=== PATIENT | male | born 1995 | race Caucasian/White ===

== ENCOUNTER 2019-07-31 10:10 | Outpatient (CLI) | payer OTHER, MEDICAID, SELFPAY ==
[2019-07-31 10:50] LABS: Hematocrit 44.2 % (42.0-52.0); Hemoglobin 15.2 g/dL (14.0-18.0); Mean Corpuscular HGB Conc 34.4 g/dl (32-36); Mean Corpuscular Volume 95.9 fl (80-100); Mean Platelet Volume 10.3 fl (7.4-10.4); Platelet Count Result 162 k/mm3 (150-375); Red Blood Count 4.61 M/mm3 (4.6-6.20); Red Cell Distribution Width 11.6 % (11.5-14.5); White Blood Count 5.8 K/mm3 (4.5-10.0)
[2019-07-31 11:02] LABS: Alanine Aminotransferase 40 U/L (4-50); Albumin Level 4.5 g/dL (3.5-5.1); Alkaline Phosphatase 67 U/L (38-126); Aspartate Amino Transferase 30 U/L (17-59); Bilirubin,Total 0.5 mg/dL (0.2-1.3); Blood Urea Nitrogen 10 mg/dL (9-20); Calcium 9.1 mg/dL (8.4-10.2); Carbon Dioxide 31 mmol/L (22-30); Chloride 101 mmol/L (98-107); Estimated Glomerular Filt Rate > 60; Glucose 73 mg/dL (75-110); Potassium 3.8 mmol/L (3.4-5.0); Sodium 141 mmol/L (137-145)
== END 2019-07-31 10:11 | disposition home or self-care (01) ==
PROVIDERS: PCP Internal Medicine; Visit Provider Internal Medicine
DX: G40.909 Epilepsy, unspecified, not intractable, without status epilepticus (principal)
CPT/HCPCS: 36415; 80053; 84443; 85027

== ENCOUNTER 2020-08-01 08:22 | Outpatient (CLI) | payer OTHER, MEDICAID, SELFPAY ==
[2020-08-01 08:47] LABS: Basophils Percent Auto 0.3 % (0.2-1.2); Eosinophils Absolute Auto 0.3 K/mm3 (0-0.3); Eosinophils Percent Auto 3.7 % (0-4.4); Immature Granulocyte Absolute 0.01 K/mm3 (0.00-0.031); Immature Granulocyte Percent A 0.1 % (0-0.5); Lymphocytes Absolute Auto 3.24 K/mm3 (0.9-3.2); Lymphocytes Percent Auto 47.9 % (18.3-44.2); Mean Corpuscular Hemoglobin 33.1 pg (26-34); Mean Corpuscular Volume 97.3 fl (80-100); Mean Platelet Volume 9.5 fl (7.4-10.4); Monocytes Absolute Auto 0.3 K/mm3 (0.1-0.6); Monocytes Percent Auto 4.9 % (2.6-8.5); Neutrophils Absolute Auto 2.9 K/mm3 (1.3-6.7); Neutrophils Percent Auto 43.1 % (45.5-73.1); Platelet Count Result 171 k/mm3 (150-375); Red Blood Count 5.14 M/mm3 (4.6-6.20); Red Cell Distribution Width 11.4 % (11.5-14.5); White Blood Count 6.8 K/mm3 (4.5-10.0)
[2020-08-01 09:01] LABS: Alanine Aminotransferase 36 U/L (4-50); Albumin Level 4.8 g/dL (3.5-5.1); Alkaline Phosphatase 69 U/L (38-126); Anion Gap 8 mmol/L (8-16); Aspartate Amino Transferase 29 U/L (17-59); Bilirubin,Total 0.5 mg/dL (0.2-1.3); Blood Urea Nitrogen 16 mg/dL (9-20); Calcium 9.8 mg/dL (8.4-10.2); Carbon Dioxide 30 mmol/L (22-30); Chloride 103 mmol/L (98-107); Estimated Glomerular Filt Rate > 60; Glucose 79 mg/dL (75-110); Sodium 141 mmol/L (137-145)
== END 2020-08-01 08:23 | disposition home or self-care (01) ==
LOC: ANHLAB 08:26
PROVIDERS: PCP Internal Medicine; Visit Provider Internal Medicine
DX: G40.909 Epilepsy, unspecified, not intractable, without status epilepticus (principal); Z00.00 Encounter for general adult medical examination without abnormal findings
CPT/HCPCS: 36415; 80053; 84443; 85025

== ENCOUNTER 2021-07-27 16:06 | Outpatient (CLI) | payer OTHER, MEDICAID, SELFPAY ==
[2021-07-27 16:30] LABS: Basophils Percent Auto 0.4 % (0.2-1.2); Eosinophils Absolute Auto 0.3 K/mm3 (0-0.3); Eosinophils Percent Auto 3.6 % (0-4.4); Hemoglobin 16.7 g/dL (14.0-18.0); Immature Granulocyte Absolute 0.01 K/mm3 (0.00-0.031); Immature Granulocyte Percent A 0.1 % (0-0.5); Lymphocytes Percent Auto 44.9 % (18.3-44.2); Mean Corpuscular HGB Conc 33.4 g/dl (32-36); Mean Corpuscular Hemoglobin 32.6 pg (26-34); Mean Corpuscular Volume 97.7 fl (80-100); Mean Platelet Volume 9.5 fl (7.4-10.4); Monocytes Absolute Auto 0.4 K/mm3 (0.1-0.6); Neutrophils Absolute Auto 3.6 K/mm3 (1.3-6.7); Platelet Count Result 192 k/mm3 (150-375); Red Blood Count 5.12 M/mm3 (4.6-6.20); Red Cell Distribution Width 11.5 % (11.5-14.5); White Blood Count 7.8 K/mm3 (4.5-10.0)
[2021-07-27 16:39] LABS: Alanine Aminotransferase 31 U/L (6-50); Albumin Level 5.3 g/dL (3.5-5.1); Alkaline Phosphatase 75 U/L (38-126); Anion Gap 9 mmol/L (8-16); Aspartate Amino Transferase 28 U/L (17-59); Bilirubin,Total 0.5 mg/dL (0.2-1.3); Blood Urea Nitrogen 16 mg/dL (9-20); Calcium 9.5 mg/dL (8.4-10.2); Carbon Dioxide 33 mmol/L (22-30); Chloride 98 mmol/L (98-107); Estimated Glomerular Filt Rate > 60; Glucose 89 mg/dL (65-110); Potassium 3.6 mmol/L (3.4-5.0); Sodium 140 mmol/L (137-145)
== END 2021-07-27 16:07 | disposition home or self-care (01) ==
LOC: ANHLAB 16:10
PROVIDERS: PCP Family Medicine; Visit Provider Family Medicine
DX: G40.909 Epilepsy, unspecified, not intractable, without status epilepticus (principal)
CPT/HCPCS: 36415; 80053; 84443; 85025

== ENCOUNTER 2023-11-09 08:01 | Outpatient (CLI) | payer OTHER, MEDICAID, SELFPAY ==
--- NOTE | ~2023-11-09 | XR_ITS ---
EXAMINATION: XR UGI w esoph water soluble, XR sm bowel follow through WS DATE: 11/09/2023 10:29 INDICATION: TECHNIQUE: The patient drank water-soluble contrast. Conventional supine abdomen radiographs and fluo roscopic spot radiographs of the hypopharynx, esophagus, stomach, and proximal small bowel were obtai sydney. Additional overhead radiographs were obtained during the transit through the small bowel. Fluoro scopy exposure time was 1.3 minutes. A total of 721 fluoroscopic images and 3 overhead radiographs we re obtained. Total DAP was 11.293 Gycm^2 COMPARISON: None. FINDINGS: The pharynx appears normal without evidence of mass lesion or mucosal irregularity. There was flash l aryngeal penetration which cleared immediately without aspiration. The esophagus is normal without ma ss or stricture. Esophageal motility is normal. There is no hiatal hernia. The stomach and proximal s mall bowel are normal. There is elevation of the diaphragm due to marked gaseous distention of the co malissa. Transit time from the stomach to proximal colon was approximately 30 minutes. There is normal caliber and mucosal fold pattern throughout the small bowel. IMPRESSION: 1. Flash laryngeal penetration without aspiration. Otherwise unremarkable water-soluble contrast esop hagram and upper GI study. 2. Prominent gaseous distention of the colon. Otherwise normal small bowel follow-through with 30 min ramona transit time to the colon. Reviewed, dictated and finalized at location A. IMPRESSION: 1. Flash laryngeal penetration without aspiration. Otherwise unremarkable water -soluble contrast esophagram and upper GI study. 2. Prominent gaseous distention of the colon. Otherwise normal small bowel foll ow-through with 30 minute transit time to the colon.
== END 2023-11-09 08:02 | disposition home or self-care (01) ==
LOC: ANHIMG 08:01
PROVIDERS: PCP Family Medicine; Visit Provider Family Medicine
DX: R11.15 Cyclical vomiting syndrome unrelated to migraine (principal); K63.89 Other specified diseases of intestine
CPT/HCPCS: 74240; 74248; 74250

== ENCOUNTER 2024-05-06 11:27 | Outpatient (CLI) | payer OTHER, SELFPAY ==
--- NOTE | ~2024-05-06 | XR_ITS ---
Clinical Indication: Chronic cough PA and lateral views of the chest: Comparison: 08/24/2016 Findings: There is central pulmonary venous congestive change or vascular crowding with probable mini mal bibasilar pulmonary edema. No pleural effusion or pneumothorax. Cardiomediastinal silhouette is within normal limits. Markedly air distended bowel loops are present of the diaphragm, similar to fausto or exam. Osseous structures intact. Impression: Low lung volumes with probable vascular crowding or central congestive change and mild bibasilar pulm onary edema versus atelectasis. Air distended loops of bowel under the diaphragms are similar to prior exam. Reviewed, dictated and finalized at location . S EXAMINER Impression: Low lung volumes with probable vascular crowding or central congestive change a nd mild bibasilar pulmonary edema versus atelectasis. Air distended loops of bowel under the diaphragms are similar to prior exam.
== END 2024-05-06 11:28 | disposition home or self-care (01) ==
LOC: MICIMG 11:31
PROVIDERS: PCP Family Medicine; Visit Provider Physician Assistant Medical
DX: R91.8 Other nonspecific abnormal finding of lung field (principal)
CPT/HCPCS: 71046

== ENCOUNTER 2024-05-23 07:54 | Outpatient (CLI) | payer OTHER, MEDICAID, SELFPAY ==
--- NOTE | 2024-05-23 07:57 | ECHO_ITS ---
Patient Info Name: Dewayne Berkowitz Age: 28 years : 1995 Gender: Male Ht: 63 in Wt: 147 lbs BSA: 1.74 m2 HR: 67 bpm BP: 131 / 103 mmHg Technical Quality: Good Exam Date: 05/23/2024 8:09 AM Exam Location: Echo Lab Patient Status: Outpatient Admit Date: 05/23/2024 Staff Ordering Physician: Natali Neves PAC Automation Technologist: Rica Tavares RDCS Attending Provider: Natali Neves Referring Physician: Pura HERNANDEZ; Exam Type: CA echo doppler color flow Study Info Indications - Chronic pulmonary edema Complete two-dimensional, color flow and Doppler transthoracic echocardiogram is performed. Strain analysis performed. Summary 1. Complete two-dimensional, color flow and Doppler transthoracic echocardiogram is performed. 2. Left ventricular chamber dimension is moderately enlarged. 3. Left ventricular systolic function is mildly globally reduced, estimated at 45-50%. 4. The left ventricular diastolic function is normal. 5. E/e' 5 is not elevated. 6. Global longitudinal strain is normal at -19.1%. 7. Right ventricular chamber dimension is moderately enlarged. 8. Right ventricular systolic function is mildly reduced and with abnormal TAPSE 1.5 cm. 9. Left atrial chamber dimension is moderately enlarged. 10. Right atrial chamber dimension is mildly enlarged. 11. There is trace mitral valve regurgitation. 12. There is trace tricuspid valve regurgitation. 13. No pulmonary hypertension, estimated pulmonary arterial systolic pressure is 20 mmHg. 14. There is trace pulmonic regurgitation. Left Ventricle E/e' 5 is not elevated. Global longitudinal strain is normal at -19.1%. Left ventricular systolic function is mildly globally reduced, estimated at 45-50%. Left ventricular chamber dimension is moderately enlarged. The left ventricular diastolic function is normal. Right Ventricle Right ventricular systolic function is mildly reduced and with abnormal TAPSE 1.5 cm. Right ventricular chamber dimension is moderately enlarged. Left Atria Left atrial chamber dimension is moderately enlarged. Right Atria Right atrial chamber dimension is mildly enlarged. Aortic Valve The aortic valve is trileaflet. There is no aortic valve stenosis. There is no aortic valve regurgitation. Pulmonic Valve There is trace pulmonic regurgitation. Mitral Valve There is no mitral valve stenosis. There is trace mitral valve regurgitation. Tricuspid Valve There is trace tricuspid valve regurgitation. No pulmonary hypertension, estimated pulmonary arterial systolic pressure is 20 mmHg. Pericardium/Pleural There is no pericardial effusion. Inferior Vena Cava Normal inferior vena cava with >50% collapse upon inspiration consistent with normal right atrial pressure, 5 mmHg. Aorta The aortic root size at the sinus of Valsalva is normal. Left Ventricular Outflow Tract Name Value Normal LVOT 2D LVOT Diameter 2.0 cm LVOT Doppler LVOT Peak Gradient 3 mmHg LVOT Mean Gradient 2 mmHg LVOT VTI 18 cm LVOT VTI/AV VTI Ratio 0.7 LVOT Stroke Volume 56 ml LVOT CO 12.4 l/min LVOT CI 7.1 l/min/m2 Pulmonic Valve Name Value Normal PV Doppler PV Peak Gradient 4 mmHg Mitral Valve Name Value Normal MV Doppler MV Decel Rincon 444 cm/s2 MV PHT 57 ms MV Area (PHT) 3.9 cm2 4.0-5.0 MV Diastolic Function MV E Peak Velocity 87 cm/s MV A Peak Velocity 33 cm/s MV E/A 2.6 MV Decel Time 196 ms MV Annular TDI MV E/e' (Septal) 8.4 <=8.0 MV E/e' (Lateral) 4.6 <=8.0 MV E/e' (Average) 6.5 Tricuspid Valve Name Value Normal TV Regurgitation Doppler TR Peak Velocity 196 cm/s TR Peak Gradient 15 mmHg Estimated PAP/RSVP RA Pressure 5 mmHg <=5 PA Systolic Pressure 20 mmHg <36 RV Systolic Pressure 20 mmHg <36 Aorta Name Value Normal Ascending Aorta Ao Root Diameter (MM) 2.5 cm Ao Root Diam Index (MM) 1.4 cm/m2 Aortic Valve Name Value Normal AV Doppler AV Peak Velocity 109 cm/s AV Peak Gradient 5 mmHg AV Mean Gradient 3 mmHg AV VTI 26 cm AV Area (Cont Eq VTI) 2.2 cm2 >=3.0 AV Area (Cont Eq Gilberto) 2.6 cm2 AV Regurgitation 2D LVOT Area 3.1 cm2 Ventricles Name Value Normal LV Dimensions 2D/MM IVS Diastolic Thickness (2D) 0.7 cm 0.6-1.0 LVID Diastole (2D) 4.6 cm 4.2-5.8 LVIW Diastolic Thickness (2D) 0.7 cm 0.6-1.0 LVID Systole (2D) 3.2 cm 2.5-4.0 LVOT Diameter 2.0 cm LV Mass (2D Cubed) 104.76 g 88.00-224.00 LV Mass Index (2D Cubed) 60 g/m2 49-115 Relative Wall Thickness (2D) 0.31 LV Fractional Shortening/Ejection Fraction 2D/MM LV Fractional Shortening (2D) 30 % 25-43 LV EF (2D Teicholz) 57 % 52-72 LV Diastolic Volume (4C MOD) 92 ml LV EF (4C MOD) 42 % LV Diastolic Volume (2C MOD) 92 ml LV EF (2C MOD) 49 % LV Diastolic Volume (BP MOD) 94 ml 62-150 LV Diastolic Volume Index (BP MOD) 54 ml/m2 34-74 LV Systolic Volume (BP MOD) 51 ml 21-61 LV Systolic Volume Index (BP MOD) 30 ml/m2 11-31 LV EF (BP MOD) 45 % 52-72 LV Diastolic Length (4C) 7.6 cm LV Systolic Length (4C) 5.8 cm LV Stroke Volume (4C MOD) 39 ml RV Dimensions 2D/MM RVID Diastole (2D) 3.8 cm 2.5-3.5 Atria Name Value Normal LA Dimensions LA Dimension (MM) 3.5 cm 3.0-4.1 LA Volume (4C A-L) 43 ml LA Volume (BP A-L) 46 ml RA Dimensions RA Area (4C) 12.8 cm2 <=18.0 EchoPAC Name Value Normal AutoEF LVCO_BiP_Q (Vusq5OBR) 2.7 l/min LVEF_BiP_Q (Uhtg8ACT) 52 % LVSV_BiP_Q (Szdm6QED) 45 ml LVVED_BiP_Q (Tdqg4TBR) 87 ml LVVES_BiP_Q (Pnkr6FHS) 42 ml HR_4Ch_Q (Tncp6KQT) 64 bpm LVCO_4Ch_Q (Synz8ZAA) 3.3 l/min LVEF_4Ch_Q (Dhqo5YIA) 50 % LVLd_4Ch_Q (Gfxm7DPP) 6.5 cm LVLs_4Ch_Q (Anvb6NXS) 5.3 cm LVSV_4Ch_Q (Zcaj1PVN) 52 ml LVVED_4Ch_Q (Qgco0QPR) 104 ml LVVES_4Ch_Q (Vzib1ZKJ) 51 ml HR_2Ch_Q (Zxqo1CFQ) 57 bpm LVCO_2Ch_Q (Epzt1UJE) 2.1 l/min LVEF_2Ch_Q (Efpf5JYR) 53 % LVLd_2Ch_Q (Goal3PEU) 6.4 cm LVLs_2Ch_Q (Qvgs4GFH) 5.1 cm LVSV_2Ch_Q (Pais4FFD) 38 ml LVVED_2Ch_Q (Nbyj1DGI) 71 ml LVVES_2Ch_Q (Nzho6WZN) 34 ml EMILIA AA peak sys SL (AWMA) 25.4 % AAS peak sys SL (AWMA) 24.7 % AI peak sys SL (AWMA) 27.9 % AL peak sys SL (AWMA) 17.4 % AP peak sys SL (AWMA) 21.5 % peak sys SL (AWMA) 23.7 % AVC (AWMA) 387 ms BA peak sys SL (AWMA) 10.2 % BAS peak sys SL (AWMA) 14.1 % BI peak sys SL (AWMA) 16.1 % BL peak sys SL (AWMA) 18.8 % BP peak sys SL (AWMA) 15.3 % BS peak sys SL (AWMA) 6.9 % G peak SL(A2C) (AWMA) 20.1 % G peak SL(A4C) (AWMA) 18.7 % G peak SL(APLAX) (AWMA) 18.7 % G peak SL(Avg) (AWMA) 19.2 % MA peak sys SL (AWMA) 19.4 % MAS peak sys SL (AWMA) 23.6 % IN peak sys SL (AWMA) 22.0 % ML peak sys SL (AWMA) 22.1 % MP peak sys SL (AWMA) 18.2 % MS peak sys SL (AWMA) 20.4 % Report Signatures
--- OUTSIDE RECORDS SUMMARY | 2024-05-23 08:01 | XMS_ITS | Encounter Summary ---
Author Organization [facility] Address [address] [place] [address] Care Team Providers Care Reel And Rewinder Operator Name Role Phone Rachael Silva MD Primary Care Provid er Reason for Visit * Reason Comments Medication Refill Encounter Details Date Type Department Care Team (Late st Contact Info) Description 07/11/2018 Refill [facility] NEUROLOGY [address] [address] [place] [address] [facility] [place] [id number] Social History Tobacco Use Types Packs/Day Years Used Date Smoking Tobacco: Never Alcohol Use Standard Drinks/Week Comments Not Asked 0 (1 standard drink = 0.6 oz pur e alcohol) Sex and Gender Information Value Date Recorded Sex Assigned at Not on file Legal Sex Male 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 Too early to request. documented in this encounter Plan of Treatment Upcoming Encounters Date Type Department Care Team (Late st Contact Info) Description 02/04/2025 8:00 AM BRICKLAYER APPRENTICE Video Visit [facility] Neurology [address] [facility] [address] [place] [address] Andre Sevilla MD [address] [facility] [address] [place] [address] documented as of this encounter Visit Diagnoses Not on filedocumented in this encounter Care Teams Reel And Rewinder Operator Relationship Specialty Start Date End Date Rachael Silva MD [address] [place] [address] PCP - General Pediatrics 08/23/12 documented as of this encounter
--- OUTSIDE RECORDS SUMMARY | 2024-05-23 08:01 | XMS_ITS | Encounter Summary ---
Author Organization [facility] Address [address] [place] [address] Care Team Providers Care Life Skills Coach Name Role Phone Rachael Silva MD Primary Care Provid er Encounter Details Date Type Department Care Team (Latest Contact Info) Description 03/22/2004 Outpatient Historical HIS [place] [address] 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 Gender Identity Not on file Sexual Orientation Not on file documented as of this encounter Plan of Treatment Upcoming Encounters Date Type Department Care Team (Late st Contact Info) Description 02/04/2025 8:00 AM ELECTRONIC DEVICE REPAIRER Video Visit [facility] Neurology [address] [facility] [address] [place] [address] Andre Sevilla MD [address] [place] [address] documented as of this encounter Visit Diagnoses Diagnosis Other convulsions (CMS/HCC)- Primary Other convulsions documented in this encounter Care Teams Life Skills Coach Relationship Specialty Start Date End Date Rachael Silva MD [address] [facility] [address] [place] [address] PCP - General Pediatrics 08/23/12 documented as of this encounter
--- OUTSIDE RECORDS SUMMARY | 2024-05-23 08:01 | XMS_ITS | Clinical Summary ---
Author Organization [facility] Address [address] [place] [address] Phone Care Team Providers Care Home Energy Consultant Name Role Phone Rachael Silva MD Primary Care Provid er Allergies No known active allergies Medications DIFFERIN 0.1 % Lotion 5 Active polyethylene glycol 3350 (MIRALAX) 17 gram/dose Powder Take 1 Capsule by mouth. Active LORazepam (ATIVAN) 2 mg tabletIndication s:Partial symptomatic epilepsy with complex partial seizures, intractable, without status epilepticus (CMS/HCC) TAKE 1 TABLET BY MOUTH DAILY NEEDED FOR SEIZURE CLUSTER. MAY REPEAT DOSE ONCE 5 Tablet 5 2 Active eslicarbazepine (Aptiom) 400 mg Tablet tabletIndication s:Seizure disorder (CMS/HCC) TAKE 2 TABLETS(800 MG) BY MOUTH DAILY 180 Tablet 3 3 Active Additional Information Patient not taking.Reported on 01/31/2024 clonazePAM (KlonoPIN) 1 mg tabletIndication s:Seizure disorder (CMS/HCC) TAKE 1 TABLET BY MOUTH TWICE DAILY FOR 3 TO 5 DAYS FOR ANY SEIZURE CLUSTER, CALL OR MESSAGE OFFICE IF THIS OCCURS 10 Tablet 1 4 Active lacosamide (VIMPAT) 200 mg tabletIndication s:Partial symptomatic epilepsy with complex partial seizures, intractable, without status epilepticus (CMS/HCC) TAKE 1 TABLET(200 MG) BY MOUTH TWICE DAILY 180 Tablet 3 4 Active cenobamate (Xcopri) 150 mg tablet Take 1 Tablet (150 mg) by mouth daily. 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 Encounters Date Type Department Care Team Description 05/07/2024 External Device Data STL ABSTRACTION Provider, Abstract 05/07/2024 Orders Only [facility] NEUROLOGY [address] [address] Andre Sevilla MD Seizure disorder (CMS/HCC) (Primary Dx); Therapeutic drug monitoring 05/01/2024 External Device Data STL ABSTRACTION Provider, Abstract 04/03/2024 External Device Data STL ABSTRACTION Provider, Abstract 04/02/2024 External Device Data STL ABSTRACTION Provider, Abstract 03/26/2024 External Device Data STL ABSTRACTION Provider, Abstract from Last 3 Months Social History Tobacco Use Types Packs/Day Years Used Date Smoking Tobacco: Never Tobacco Cessation:Counseling Given: Not Answered Alcohol Use Standard Drinks/Week Comments Not Asked 0 (1 standard drink = 0.6 oz pur e alcohol) Sex and Gender Information Value Date Recorded Sex Assigned at Not on file Legal Sex Male 3:27 AM DETECTIVE NARCOTICS AND VICE Gender Identity Not on file Sexual Orientation Not on file Last Filed Vital Signs Vital Sign Reading Time Taken Comments Blood Pressure 104/68 01/31/2024 9:34 AM DETECTIVE NARCOTICS AND VICE Pulse 89 01/31/2024 9:34 AM DETECTIVE NARCOTICS AND VICE Temperature - - Respiratory Rate - - Oxygen Saturation 98% 01/31/2024 9:34 AM DETECTIVE NARCOTICS AND VICE Inhaled Oxygen Concentration - - Weight 67.1 kg (148 lb) 01/31/2024 9:34 AM DETECTIVE NARCOTICS AND VICE Height 161.3 cm (5' 3.5 ) 01/31/2024 9:34 AM DETECTIVE NARCOTICS AND VICE Body Mass Index 25.81 01/31/2024 9:34 AM DETECTIVE NARCOTICS AND VICE Plan of Treatment Upcoming Encounters Date Type Department Care Team (Late st Contact Info) Description 02/04/2025 8:00 AM DETECTIVE NARCOTICS AND VICE Video Visit [facility] Neurology [address] [place] [address] Andre Sevilla MD [address] [place] [address] Health Maintenance Due Date Last Done Comments HPV VACCINES (1 - Male 3-dose series) 2012 DTAP/TDAP/TD VACCINES (1 - Tdap) 2016 HEPATITIS B VACCINES (1 of 3 - 19+ 3-dose series) 07/11 INFLUENZA VACCINE (#1) 2023 Procedures Procedure Name Priority Date/Time Associated Diagnosis Comments LACOSAMIDE LEVEL Routine 04/29/2024 11:4 2 AM DETECTIVE NARCOTICS AND VICE Seizure disorder (CMS/HCC) Therapeutic drug monitoring COMPREHENSIVE METABOLIC PANEL Routine 03/04/2024 11:24 AM DETECTIVE NARCOTICS AND VICE Seizure disorder (CMS/HCC) Therapeutic drug monitoring CBC WITH DIFFERENTIAL Routine 03/04/2024 11:24 AM DETECTIVE NARCOTICS AND VICE Seizure disorder (CMS/HCC) Therapeutic drug monitoring from Last 3 Months Results * LACOSAMIDE LEVEL (04/29/2024 11:42 AM DETECTIVE NARCOTICS AND VICE) LACOSAMIDE 10.2 mcg/mL [facility] Comment: (Note) Expected concentrations of Lacosamide in patients receiving recommended daily dosages: Up to 15.0 mcg/mL.Toxic range not established. This test was developed and its analytical performance characteristics have been determined by [facility] It has not been cleared or approved by the FDA. This assay has been validated pursuant to the CLIA regulations and is used for clinical purposes. [facility] [address] [address],[address] [facility] [address] Glo Shah MD, PhD Test Performed at: [facility] [address] [facility] [address] [place] [address] Glo Shah MD,PhD Blood 04/29/2024 11:4 2 AM DETECTIVE NARCOTICS AND VICE 04/29/2024 11:43 AM DETECTIVE NARCOTICS AND VICE us Andre Sevilla MD CHEMISTRY ORDERABLES Final Res ult [facility] [phone] [facility] [address] [facility] [address] [place] [address] * (ABNORMAL) CBC WITH DIFFERENTIAL (03/04/2024 11:24 AM DETECTIVE NARCOTICS AND VICE) WBC 6.7 3.8 - 10.8 Thousand/ uL [facility] RBC 4.35 4.20 - 5.80 Million/u L [facility] HEMOGLOBIN 14.6 13.2 - 17.1 g/dL [facility] HEMATOCRIT 44.3 38.5 - 50.0 % [facility] MCV 101.8(H) 80.0 - 100.0 fL [facility] MCH 33.6(H) 27.0 - 33.0 pg [facility] MCHC 33.0 32.0 - 36.0 g/dL [facility] Comment: For adults, a slight decrease in the calculated MCHC value (in the range of 30 to 32 g/dL) is most likely not clinically significant; however, it should be interpreted with caution in correlation with other red cell parameters and the patient's clinical condition. RDW 11.3 11.0 - 15.0 % [facility] PLATELETS 186 140 - 400 Thousand/ uL [facility] MPV 10.8 7.5 - 12.5 fL [facility] NEUTROPHIL ABSOLUTE 3,571 1,500 - 7,800 cells/uL [facility] LYMPHOCYTE ABSOLUTE 2,419 850 - 3,900 cells/uL [facility] MONOCYTE ABSOLUTE 415 200 - 950 cells/uL [facility] EOSINOPHIL ABSOLUTE 268 15 - 500 cells/uL [facility] BASOPHILS ABSOLUTE 27 0 - 200 cells/uL [facility] NEUTROPHIL 53.3 % [facility] [place] LYMPHOCYTES 36.1 % [facility] MONOCYTE 6.2 % [facility] [place] EOSINOPHILS 4.0 % [facility] [place] BASOPHILS 0.4 % [facility] Comment: Test Performed at: [facility] [address] [place] [address] Jeet Leal Blood 03/04/2024 11:2 4 AM DETECTIVE NARCOTICS AND VICE 03/04/2024 11:24 AM DETECTIVE NARCOTICS AND VICE us Andre Sevilla MD HEMATOLOGY ORDERABLES Final Re sult [facility] [phone] [facility] [address] [place] [address] * (ABNORMAL) COMPREHENSIVE METABOLIC PANEL (03/04/2024 11:24 AM DETECTIVE NARCOTICS AND VICE) GLUCOSE 77 65 - 99 mg/dL [facility] Comment: Fasting reference interval BUN 17 7 - 25 mg/dL [facility] [place] CREATININE 0.62 0.60 - 1.24 mg/dL [facility] [place] GFR 135 > OR = 60 mL/min/1. 73m2 [facility] BUN/CREAT RATIO SEE NOTE: 6 - 22 (calc) [facility] Comment: Not Reported: BUN and Creatinine are within reference range. SODIUM 140 135 - 146 mmol/L [facility] POTASSIUM 4.4 3.5 - 5.3 mmol/L [facility] CHLORIDE 100 98 - 110 mmol/L [facility] CO2 34(H) 20 - 32 mmol/L [facility] CALCIUM 9.6 8.6 - 10.3 mg/dL [facility] TOTAL PROTEIN 7.0 6.1 - 8.1 g/dL [facility] ALBUMIN 4.5 3.6 - 5.1 g/dL [facility] GLOBULIN 2.5 1.9 - 3.7 g/dL (calc) [facility] ALBUMIN/GLOBULIN RATIO 1.8 1.0 - 2.5 (calc) [facility] BILIRUBIN TOTAL 0.3 0.2 - 1.2 mg/dL [facility] ALKALINE PHOSPHATASE 77 36 - 130 U/L [facility] AST 30 10 - 40 U/L [facility] ALT 45 9 - 46 U/L [facility] Comment: Test Performed at: [facility] [address] [address] Jeet Leal Blood 03/04/2024 11:2 4 AM DETECTIVE NARCOTICS AND VICE 03/04/2024 11:24 AM DETECTIVE NARCOTICS AND VICE us Andre Sevilla MD CHEMISTRY ORDERABLES Final Res ult [facility] [phone] [facility] [address] [address] [phone] from Last 3 Months Insurance [facility] [id number] Advance Directives For more information, please contact: [phone] Documents on File Type Date Recorded Patient Gullet Slitter Expl anation Advance Directive POA 09/18/2018 11:47 AM A dvance Directive POA Care Teams Home Energy Consultant Relationship Specialty Start Date End Date Rachael Silva MD [address] [facility] [address] [place] [address] PCP - General Pediatrics 08/23/12
--- OUTSIDE RECORDS SUMMARY | 2024-05-23 08:01 | XMS_ITS | Encounter Summary ---
Author Organization [facility] Address [address] [place] [address] Care Team Providers Care Barrel Rifler Broach Name Role Phone Rachael Silva MD Primary Care Provid er Reason for Visit * Reason Comments Medication Refill Encounter Details Date Type Department Care Team (Late st Contact Info) Description 11/24/2017 Refill [facility] NEUROLOGY [address] [address] [place] [address] [facility] [place] [id number] Social History Tobacco Use Types Packs/Day Years Used Date Smoking Tobacco: Never Alcohol Use Standard Drinks/Week Comments Not Asked 0 (1 standard drink = 0.6 oz pur e alcohol) Sex and Gender Information Value Date Recorded Sex Assigned at Not on file Legal Sex Male 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 Gender Identity Not on file Sexual Orientation Not on file documented as of this encounter Miscellaneous Notes * Telephone Encounter - Azra Cloud - 11/24/2017 11:24 AM CDT Upcoming appt : 04/2018 documented in this encounter Plan of Treatment Upcoming Encounters Date Type Department Care Team (Late st Contact Info) Description 02/04/2025 8:00 AM PLATING STRIPPER Video Visit [facility] Neurology [address] [place] [address] Andre Sevilla MD [address] [place] [address] documented as of this encounter Visit Diagnoses Not on filedocumented in this encounter Care Teams Barrel Rifler Broach Relationship Specialty Start Date End Date Rachael Silva MD [address] [place] [address] PCP - General Pediatrics 08/23/12 documented as of this encounter
--- OUTSIDE RECORDS SUMMARY | 2024-05-23 08:01 | XMS_ITS | Encounter Summary ---
Author Organization [facility] Address [address] [place] [address] Care Team Providers Care Polyethylene Bag Machine Operator Name Role Phone Rachael Silva MD Primary Care Provid er Encounter Details Date Type Department Care Team (Late Contact Info) Description 03/22/2004 Outpatient Historical [facility] Services [address] [place] [address] [place] [address] [facility] [address] [place] [address] Social History Tobacco Use Types Packs/Day Years Used Date Smoking Tobacco: Never Assessed Sex and Gender Information Value Date Recorded Sex Assigned at Not on file Legal Sex Male 3:27 AM METAL BUFFER Gender Identity Not on file Sexual Orientation Not on file documented as of this encounter Plan of Treatment Upcoming Encounters Date Type Department Care Team (Late st Contact Info) Description 02/04/2025 8:00 AM METAL BUFFER Video Visit [facility] Neurology [address] [facility] [address] [place] [address] Andre Sevilla MD [address] [facility] [address] [place] [address] documented as of this encounter Visit Diagnoses Not on filedocumented in this encounter Care Teams Polyethylene Bag Machine Operator Relationship Specialty Start Date End Date Rachael Silva MD [address] [facility] [address] [place] [id number] PCP - General Pediatrics 08/23/12 documented as of this encounter
--- OUTSIDE RECORDS SUMMARY | 2024-05-23 08:02 | XMS_ITS | Encounter Summary ---
Author Organization [facility] Address [address] [place] [address] Care Team Providers Care Flight Engineer Performance Qualified Name Role Phone Rachael Silva MD Primary Care Provid er Encounter Details Date Type Department Care Team (Late Contact Info) Description 03/22/2004 Outpatient Historical [facility] Services [address] [place] [address] [place] [address] [facility] [address] [place] [address] Social History Tobacco Use Types Packs/Day Years Used Date Smoking Tobacco: Never Assessed Sex and Gender Information Value Date Recorded Sex Assigned at Not on file Legal Sex Male 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 Gender Identity Not on file Sexual Orientation Not on file documented as of this encounter Plan of Treatment Upcoming Encounters Date Type Department Care Team (Late st Contact Info) Description 02/04/2025 8:00 AM CLOTH WINDING SUPERVISOR Video Visit [facility] Neurology [address] [facility] [address] [place] [address] Andre Sevilla MD [address] [facility] [address] [place] [address] documented as of this encounter Visit Diagnoses Not on filedocumented in this encounter Care Teams Flight Engineer Performance Qualified Relationship Specialty Start Date End Date Rachael Silva MD [address] [facility] [address] [place] [phone] PCP - General Pediatrics 08/23/12 documented as of this encounter
--- OUTSIDE RECORDS SUMMARY | 2024-05-23 08:02 | XMS_ITS | Referral Summary ---
Author Organization [facility] Address [address] [facility] [place] [address] Care Team Providers Care Yarn Comber Name Role Phone Rachael Silva MD Primary Care Provider [phone] Source Comments [facility],non-owned Affiliates and Associated Physician Practices is amultiple site organization consisting of ambulatory clinics and hospital sitesin [place], [place], [place] and [place]. This disclosure is being madepursuant to the Care Everywhere program and may not contain all information available regarding this patient. Last updated 17.[facility] Allergies No known active allergies Medications * Be aware that medications may not be up to date on this document. Alwaysverify current medications with the patient. Medication Sig Dispensed Refills Start Date End Date Status 0.9% NaCl irrigation 0.9 % irrigation solution USE DAILY NEEDED FOR ENEMA 2020 Active VIMPAT 100 MG tablet Take 2 (two) tablets by mouth 2 times daily 12/06/2020 Active cloBAZam (Onfi) 20 MG tablet Take by mouth SEE ADMIN INSTRUCTIONS 2 tabs in AM, 2.5 tabs at night Active Multiple Vitamins-Minerals (ZINC PO) Take by mouth once daily Active Polyethylene Glycol 3350 (MIRALAX PO) Take by mouth once daily Active clonazePAM (KlonoPIN) 1 MG tablet TAKE 1 TABLET BID FOR 3-5 DAYS FOR ANY SEIZURE CLUSTER ;; CALL OR MESSAGE OFFICE IF THIS OCCURS 03/18/2022 Active eslicarbazepine (Aptiom) 400 MG tablet Take 1 (one) tablet by mouth once daily 10/10/2022 Active lacosamide (Vimpat) 200 MG tablet Take 1 (one) tablet by mouth two times daily at 4am and 4pm 11/14/2023 Active Xcopri 14 x 12.5 MG & 14 x 25 MG TBPK FIRST TITRATION PACK - 12.5 mg QD for 2 weeks, then 25 mg QD for 2 weeks, then transition to second titration pack. 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 Intellectual disability 05/31/2014 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 06/16/2010 Alternating exotropia 06/16/2010 Developmental delay 06/16/2010 Hyperopia 06/16/2010 Social History Tobacco Use Types Packs/Day Years Used Date Smoking Tobacco: Never Smokeless Tobacco: Never Tobacco Cessation:Counseling Given: Not Answered Alcohol Use Standard Drinks/Week Comments Never 0 (1 standard drink = 0.6 oz pur e alcohol) Sex and Gender Information Value Date Recorded Sex Assigned at Not on file Gender Identity Not on file Sexual Orientation Not on file Last Filed Vital Signs Vital Sign Reading Time Taken Comments Blood Pressure 136/98 11/20/2023 4:36 PM CDT Pulse 76 11/20/2023 3:07 PM CDT Temperature 35.3 C (95.5 F) 11/20/2023 3:07 PM CDT Respiratory Rate 12 08/14/2023 11:20 AM CDT Oxygen Saturation 99% 11/20/2023 3:07 PM CDT Inhaled Oxygen Concentration - - Weight 66.4 kg (146 lb 6.4 oz) 11/20/2023 3:07 P M CDT Height 157.5 cm (5' 2 ) 11/20/2023 3:07 PM CDT Body Mass Index 26.78 11/20/2023 3:07 PM CDT Functional Status Functional Status Response Date of Assess ment Is person deaf or have serious hearing difficult y? No 08/14/2023 Is person blind or have serious difficulty seein g? No 08/14/2023 Does person have serious dif ficulty walking/climbing stairs? Yes 08/14/2023 Does person have difficulty dressing/bathing? Ye s 08/14/2023 Does person have difficulty doing errands alone? Yes 08/14/2023 Cognitive Status Response Date of Assessm ent Does person have difficulty concentrating/remembering/making decisions? Yes 08/14/2023 Plan of Treatment Upcoming Encounters Date Type Department Care Team (Late st Contact Info) Description 11/25/2024 1:30 PM CDT Office Visit [facility] - Ophthalmology [address] [place] [phone] Austin Cowan MD [address] [place] [address] 11/25/2024 3:00 PM CDT Office Visit [facility] - GI [address] [place] [phone] Goals Goal Patient Goal Type Associated Problems Recent Progress Patient-Stated? Author Medication Management General On track( 024 2:56 PM CDT) No Dustin Rodrigues, RN Note: Expected end date: ongoing Interventions: Take all medications as prescribed Let your doctor know right away about any changes in your medications Make sure to request a refill of your medication at least one week prior to your last dose Care Teams Yarn Comber Relationship Specialty Start Date End Date Rachael Silva MD [address] [place], [place] [phone] PCP - General 05/20/09
--- OUTSIDE RECORDS SUMMARY | 2024-05-23 08:02 | XMS_ITS | Patient Health Summary ---
Author Organization [facility] Address [address] [facility] [place] [address] Care Team Providers Care Roto Mixer Operator Name Role Phone Rachael Silva MD Primary Care Provider [phone] Note from [facility],non-owned Affiliates and Associated Physician Practices is amultiple site organization consisting of ambulatory clinics and hospital sitesin [place], [place], [place] and [place]. This disclosure is being madepursuant to the Care Everywhere program and may not contain all information available regarding this patient. Last updated 17.[facility] Allergies No known active allergies Medications * Be aware that medications may not be up to date on this document. Alwaysverify current medications with the patient. * 0.9% NaCl irrigation 0.9 % irrigation solution(Started 2020) USE DAILY NEEDED FOR ENEMA * VIMPAT 100 MG tablet(Started 12/06/2020) Take 2 (two) tablets by mouth 2 times daily * cloBAZam (Onfi) 20 MG tablet Take by mouth SEE ADMIN INSTRUCTIONS 2 tabs in AM, 2.5 tabs at night * Multiple Vitamins-Minerals (ZINC PO) Take by mouth once daily * Polyethylene Glycol 3350 (MIRALAX PO) Take by mouth once daily * clonazePAM (KlonoPIN) 1 MG tablet(Started 03/18/2022) TAKE 1 TABLET BID FOR 3-5 DAYS FOR ANY SEIZURE CLUSTER ;; CALL OR MESSAGE OFFICE IF THIS OCCURS * eslicarbazepine (Aptiom) 400 MG tablet(Started 10/10/2022) Take 1 (one) tablet by mouth once daily * lacosamide (Vimpat) 200 MG tablet(Started 11/14/2023) Take 1 (one) tablet by mouth two times daily at 4am and 4pm * Xcopri 14 x 12.5 MG & 14 x 25 MG TBPK(Started 10/26/2023) FIRST TITRATION PACK - 12.5 mg QD for 2 weeks, then 25 mg QD for 2 weeks, then transition to secondtitration pack. * Cenobamate (Xcopri) 14 x 150 MG & 14 x200 MG TBPK(Started 12/23/2023) THIRD TITRATION PACK - 150 mg QD for 2 weeks, then 200 mg QD for 2 weeks, then transition maintenance script * Cenobamate (Xcopri) 14 x 50 MG & 14 x100 MG TBPK(Started 11/24/2023) SECOND TITRATION PACK - 50 mg QD for 2 weeks, then 100 mg QD for 2 weeks, then transition to third script Active Problems Problem Noted Date Diagnosed Date [...] Mass Index 26.78 11/20/2023 3:07 PM CDT Procedures * PATHOLOGY TISSUE(Performed 08/14/2023) Performed for Vomiting, unspecified vomiting type, unspecified whether nausea present, Constipation, unspecified constipation type * VT ED EGD FLEX TRANSORAL DX(Performed 08/14/2023) Performed for Vomiting, unspecified vomiting type, unspecified whether nausea present, Constipation, unspecified constipation type * EGD(Performed 08/14/2023) * IMAGING/RADIOLOGY/XRAY RESULTS ORDER(Performed 08/30/2012) * GROSS + MICRO EXAM(Performed 12/16/1999) Results * PATHOLOGY TISSUE (08/14/2023 10:33 AM CDT) Case Report Surgical Pathology Report Case: [id number] Authorizing Provider: Sammi Rocha DO Collected: 08/14/2023 10:33 AM Ordering Location: [facility] ENDOSCOPY Received: 08/14/2023 11:03 AM Pathologist: Do Adair MD Specimens: A) - Small Bowel, duodenal bx - r/o Celiac B) - Gastric, gastric bx - r/o H.Pylori C) - Esophagus, mid-esophagus bx - r/o EOE D) - Esophagus, esophagus bx - r/o EOE 08/15/2023 1:45 PM CDT [facility] Final Diagnosis Small intestine, duodenum, biopsy (A): - No histopathologic abnormality - Intact villous and crypt architecture without increased intraepithelial lymphocytes Stomach, biopsy (B): - No histopathologic abnormality - No active inflammation or H. pylori organisms (H&E examination) Esophagus, mid, biopsy (C): - No histopathologic abnormality - No increase in intraepithelial eosinophils Esophagus, biopsy (D): - No histopathologic abnormality - No increase in intraepithelial eosinophils 08/15/2023 1:45 PM CDT [facility] Microscopic Description and Comment Microscopic examination substantiates the final diagnosis. 08/15/2023 1:45 PM CDT [facility] Clinical History The patient is a 28-year-old man with vomiting. Operative procedure/findings: EGD - normal stomach, biopsied to rule out H. pylori. Normal major papilla and examined duodenum, biopsied to rule out celiac. Normal esophagus, biopsied to rule out eosinophilic esophagitis 08/15/2023 1:45 PM [facility] Gross Description The requisition and specimen(s) are identified with the patient's name, Dewayne Berkowitz. Received in formalin, specimen A , are multiple bedolla-white soft tissue fragments aggregating to 0.8 x 0.5 x 0.2 cm and ranging from 0.2 to 0.4 cm. Submitted in toto in A1. Received in formalin, specimen B are 4 bedolla-white soft tissue fragments aggregating to 0.7 x 0.3 x 0.1 cm and ranging from 0.1 to 0.3 cm. Submitted in toto in B1. Received in formalin, specimen C are multiple bedolla-white soft tissue fragments aggregating to 1.0 x 0.3 x 0.1 cm and ranging from 0.1 to 0.3 cm. Submitted in toto in C1. Received in formalin, specimen D are two bedolla-white segments of soft tissue measuring 0.3 x 0.2 x 0.1 and 0.3 x 0.2 x 0.1 cm. Submitted in toto in D1. MSL 08/15/2023 1:45 PM [facility] Pathologist Location at [facility] 08/15/2023 1:45 PM [facility] Disclaimer The performance characteristics of all immunohistochemical and indirect immunofluorescence stains (if any) cited in this report were determined by the Histopathology Laboratory of [facility]. Some of these tests were developed by our own laboratory and have not been cleared or approved by the US Food and Drug Administration. The FDA does not require this test to go through premarket FDA review. These tests are used for clinical purposes. They should not be regarded as investigational or for research. This laboratory is certified under the Clinical Laboratory Improvement Amendments (CLIA) as qualified to perform high complexity clinical laboratory testing. This case has been personally reviewed and interpreted by the attending (teaching) pathologist. 08/15/2023 1:45 PM [facility] Embedded Images 08/15/2023 1:45 PM [facility] Biopsy, NOS SMALL BOWEL RESECTION SPECIMEN / Unknown 08/14/2023 10:33 AM CDT 08/14/2023 11:03 AM CDT Comment:Pre-op diagnosis: Vomiting, unspecified vomiting type, unspecified whether nausea present [R11.10] Constipation, unspecified constipation type [K59.00] Biopsy, NOS GASTRIC CONTENTS SPECIMEN / Unknown 08/14/2023 10:36 AM CDT 08/14/2023 11:03 AM CDT Comment:Pre-op diagnosis: Vomiting, unspecified vomiting type, unspecified whether nausea present [R11.10] Constipation, unspecified constipation type [K59.00] Biopsy, NOS REGION OF ESOPHAGUS / Unknown 08/14/2023 10:38 AM CDT 08/14/2023 11:03 AM CDT Comment:Pre-op diagnosis: Vomiting, unspecified vomiting type, unspecified whether nausea present [R11.10] Constipation, unspecified constipation type [K59.00] Biopsy, NOS REGION OF ESOPHAGUS / Unknown 08/14/2023 10:40 AM CDT 08/14/2023 11:03 AM CDT Comment:Pre-op diagnosis: Vomiting, unspecified vomiting type, unspecified whether nausea present [R11.10] Constipation, unspecified constipation type [K59.00] Sammi Rocha DO LAB - PATHOLOGY/CYTO LOGY ORDERABLES Performing Organization Address [facility]/State/[facility] Co de Phone Number [facility] [address] [phone] * EGD (08/14/2023 9:46 AM CDT) Report Endoscopy POC Endoscopy Department Report _ Patient Name: Dewayne Berkowitz Procedure Date: 08/14/2023 9:46 AM Date of : 1995 Classification: Outpatient Gender: Male Ethnicity: Not or Race: White _ Providers: Sammi Rocha DO Referring MD: Rachael Silva (Referring MD) Procedure: Upper GI endoscopy Indications: Vomiting Medications: Monitored Anesthesia Care Description of Procedure: Pre-Anesthesia Assessment: - Prior to the procedure, a History and Physical was performed, and patient medications and allergies were reviewed. The patient's tolerance of previous anesthesia was also reviewed. The risks and benefits of the procedure and the sedation options and risks were discussed with the patient. All questions were answered, and informed consent was obtained. Prior Anticoagulants: The patient has taken no anticoagulant or antiplatelet agents. ASA Grade Assessment: II - A patient with mild systemic disease. After reviewing the risks and benefits, the patient was deemed in satisfactory condition to undergo the procedure. After obtaining informed consent, the endoscope was passed under direct vision. Throughout the procedure, the patient's blood pressure, pulse, and oxygen saturations were monitored continuously. The Endoscope was introduced through the mouth, and advanced to the second part of duodenum. The upper GI endoscopy was accomplished without difficulty. The patient tolerated the procedure well. Findings: The examined esophagus was normal. Biopsies were obtained from the proximal and mid esophagus with cold forceps for histology of suspected eosinophilic esophagitis. The Z-line was regular. Imaging was performed using zoom magnification, white light and narrow band imaging to visualize the mucosa. The entire examined stomach was normal. Biopsies were taken with a cold forceps for Helicobacter pylori testing. The major papilla and examined duodenum were normal. Biopsies for histology were taken with a cold forceps for evaluation of celiac disease. Estimated Blood Loss: Estimated blood loss: none. Complications: No immediate complications. Impression: - Normal esophagus. - Z-line regular. - Normal stomach. Biopsied. - Normal major papilla and examined duodenum. Biopsied. - Biopsies were taken with a cold forceps for evaluation of eosinophilic esophagitis. Recommendation: - Patient has a contact number available for emergencies. The signs and symptoms of potential delayed complications were discussed with the patient. Return to normal activities tomorrow. Written discharge instructions were provided to the patient. - Resume previous diet. - Continue present medications. - Await pathology results. Procedure Code(s): --- Professional --- 32586, Esophagogastroduo denoscopy, flexible, transoral; with biopsy, single or multiple Diagnosis Code(s): --- Professional --- R11.10, Vomiting, unspecified CPT copyright 2021 [employer]. All rights reserved. The codes documented in this report are preliminary and upon pyrotechnic assembler review may be revised to meet current compliance requirements. Sammi Rocha DO 08/14/2023 10:55:47 AM This report has been signed electronically. Note Initiated On: 08/14/2023 9:46 AM Number of Addenda: 0 [facility] [address] [place] [id number] [place] [address] [employer]OVATION 08/14/2023 9:46 AM CDT Sammi Rocha DO GI PROCEDURE ORDERAB LES Performing Organization Address City/State/[facility] Co de Phone Number [facility] [employer] * IMAGING/RADIOLOGY/XRAY RESULTS ORDER (08/30/2012 1:10 PM CDT) Anatomical Region Laterality Modality Other Narrative 08/30/2012 1:10 PM CDT Procedure Note Document, Scanned - 08/30/2012 1:10 PM CDT Scanned Document IMAGING * GROSS + MICRO EXAM (12/16/1999 8:00 AM CDT) Result CASE NUMBER [id number] [facility] PATH REPORT Comment: ORDERING PHYSICIAN LEANN DOLAN V SPECIMEN TYPE Dermoid Cyst-Lt. Eye CLINICAL HISTORY The patient is a 4-year-old boy with a dermoid cyst of the left eye and exotropia. GROSS DESCRIPTION The specimen labeled with the patient's name and A1, dermoid cyst, left eye is received fresh for gross and microscopic examination and consists of a 1.3 x 1.0 x 0.8 cm. ruptured, pink-bedolla cystic structure containing yellow keratinaceous material and fine strands of hair. The specimen is bisected and entirely submitted in cassette A1 . (CT/lw) MICROSCOPIC DESCRIPTION (A1 1 H/E) Sections show fibroadipose tissue with cutaneous adnexa associated with foamy histiocytes and exuberant foreign body giant cell reaction to hair shafts and keratin. A small focus of stratified squamous epithelium is present. (DB/DED/lw) DIAGNOSIS DIAGNOSIS A1) EYE, LEFT, DERMOID CYST , EXCISION - DERMOID CYST WITH RUPTURE. Contracting Engineer Ching Harrington RESIDENT IN PATHOLOG Hong Mclaughlin M.D. PATHOLOGIST Latoya Fairbanks M.D. ELECTRONICALLY LATOYA HERRERA MISCELLANEOUS SAMPLES / Unknown 12/16/1999 8:00 AM CDT 12/16/1999 9:29 AM CDT Historical Provider MD LAB - PATHOLOGY/C YTOLOGY ORDERABLES [facility] PATH REPORT Care Teams Roto Mixer Operator Relationship Specialty Start Date End Date Rachael Silva MD [address] [place] [id number] PCP - General 05/20/09
--- OUTSIDE RECORDS SUMMARY | 2024-05-23 08:02 | XMS_ITS | Clinical Summary ---
Author Organization [facility] Address [address] [place] [address] Care Team Providers Care Form Tamper Operator Name Role Phone Rachael Silva MD Primary Care Provider [phone] Source Comments [facility],non-owned Affiliates and Associated Physician Practices is amultiple site organization consisting of ambulatory clinics and hospital sitesin [place], [place], [place] and [place]. This disclosure is being madepursuant to the Care Everywhere program and may not contain all information available regarding this patient. Last updated [employer] Allergies No known active allergies Medications * [...] exotropia 06/16/2010 Developmental delay 06/16/2010 Hyperopia 06/16/2010 Family History Medical History Relation Name Comments None Known Father None Known Mother Relation Name Status Comments Father Mother Social History Tobacco Use Types Packs/Day Years [...] Mass Index 26.78 11/20/2023 3:07 PM CDT Plan of Treatment Upcoming Encounters Date Type Department Care Team (Late st Contact Info) Description 11/25/2024 1:30 PM CDT Office Visit [facility] - Ophthalmology [address], [place] [phone] Austin Cowan MD [address] [place] [id number] 11/25/2024 3:00 PM CDT Office Visit [facility] - GI [address] [place] [phone] Health Maintenance Due Date Last Done Comments HIV SCREENING 2012 HPV VACCINE (1 - Male 3-dose series) 2012 HEPATITIS C SCREENING 07/24/2015 DTAP/TDAP/TD VACCINES (1 - Tdap) 2016 HEPATITIS B VACCINE (1 of 3 - 19+ 3-dose series) 2016 COVID-19 VACCINE ( - 2023-2 5 season) 2023 INFLUENZA VACCINE (#1) 2023 DEPRESSION SCREENING 03/13/2024 ZOSTER VACCINE (1 of 2) 07/29/2047 HIB VACCINE Aged Out No longer eligi ble based on patient's age to complete this topic MENINGOCOCCAL (Group B) VACC INE SHARED DECISION-MAKING Aged Out No longer eligibl e based on patient's age to complete this topic MENINGOCOCCAL GROUPS A/C/Y/W VACCINE Aged Out No longer eligible b ased on patient's age to complete this topic PNEUMOCOCCAL VACCINE Aged Out No long er eligible based on patient's age to complete this topic Goals Goal Patient Goal Type Associated Problems [...] prior to your last dose Care Teams Form Tamper Operator Relationship Specialty Start Date End Date Rachael Silva MD [address] [place] [address] PCP - General 05/20/09
== END 2024-05-23 07:55 | disposition home or self-care (01) ==
LOC: ANHCARD 07:55
PROVIDERS: PCP Family Medicine; Visit Provider Physician Assistant Medical
DX: J81.1 Chronic pulmonary edema (principal)
CPT/HCPCS: 93306